=== PATIENT | female | born 1965 ===

== ENCOUNTER 2020-04-14 07:00 | Day surgery (SDC) | payer OTHER ==
[~2020-04-14] VITALS: Ht 165.1 cm; Wt 90.7 kg
[~2020-04-14 07:00] MED LIST: ATORVASTATIN CA10 MG PO
[2020-04-14] MEDS ORDERED: PREMARIN0.45 MG PO (16:02)
== END 2020-04-14 13:00 | disposition home or self-care (01) ==
LOC: O/R 07:00 → SURH 07:00 → CIR.AMB 07:00 → EDSTATUS 10:15 → SURH 10:15 → CIR.AMB 13:00 → SURH 15:24 → O/R 21:30
PROVIDERS: ATTEND Surgery
DX: D24.2 Benign neoplasm of left breast (principal); E65 Localized adiposity; M62.08 Separation of muscle (nontraumatic), other site; N62 Hypertrophy of breast

== ENCOUNTER → 2020-11-14 | Outpatient (CLI) | payer OTHER ==
[~2020-11-14] MED LIST changes: +PREMARIN0.45 MG PO
== END | disposition home or self-care (01) ==
LOC: MRI 14:03
PROVIDERS: ATTEND Orthopaedic Surgery
DX: M25.561 Pain in right knee (principal); M25.562 Pain in left knee
CPT/HCPCS: 73721